=== PATIENT | female | born 1970 | race Caucasian/White ===

== ENCOUNTER 2017-07-04 19:24 | Emergency (ER) | payer BC ==
[~2017-07-04] VITALS: Ht 172.7 cm; Wt 72.6 kg
[2017-07-04 20:56] LABS: BILIRUBIN,URINE NEGATIVE (NEG); GLUCOSE,URINE 500 mg/dL (NEG); NITRITE,URINE NEGATIVE (NEG); PROTEIN,URINE NEGATIVE (NEG-TRACE); UROBILINOGEN,URINE 0.2 mg/dL (0.2 mg/dL)
[2017-07-04] MEDS ORDERED: ONDANSETRON PF 4 MG/2 ML VIAL. IV ONE (21:00)
[2017-07-04 21:14] LABS: BASO # 0.1 x10^3/uL (0.0-0.2); BASO % 1 % (0-3); EOS % 1 % (0-3); HEMATOCRIT 38.8 % (36.0-47.0); LYMPH % 19 % (24-48); MEAN CORPUSCULAR HEMOGLOBIN 34 pg (25-35); MEAN CORPUSCULAR HGB CONC 34 g/dL (31-37); MEAN CORPUSCULAR VOLUME 100 fL (79-100); MONO % 4 % (0-9); NEUT % 75 % (31-73); PLATELET COUNT 222 x10^3/uL (140-400); RED BLOOD COUNT 3.88 x10^6/uL (3.50-5.40); RED CELL DISTRIBUTION WIDTH 15.9 % (11.5-14.5); WHITE BLOOD COUNT 10.6 x10^3/uL (4.0-11.0)
[2017-07-04] MEDS ORDERED: IOHEXOL 300 MG/ML 75 ML VIAL IV ONE (21:15)
[2017-07-04] MEDS ORDERED: CONTRAST GIVEN MC PRN (21:15)
[2017-07-04] MEDS: MORPHINE SULFATE 4 MG/ML DISP.SYRIN. IV/SQ PRN ×2 (21:16→21:55)
[2017-07-04 21:19] LABS: BACTERIA,URINE 0 /HPF (0-FEW); RBC,URINE OCC /HPF (0-2); SQUAMOUS EPITHELIAL CELL,UR OCC /LPF
[2017-07-04 21:24] LABS: CALCIUM 8.5 mg/dL (8.5-10.1); CREATININE 0.7 mg/dL (0.6-1.0); GFR 90.1; POTASSIUM 4.1 mmol/L (3.5-5.1)
--- NOTE | 2017-07-04 22:06 | RAD ---
Indication: Left anterior rib pain, status post trauma. Axial imaging through the chest was performed after the administration of intravenous contrast. One or more of the following individualized dose reduction techniques were utilized for this examination: 1. Automated exposure control 2. Adjustment of the mA and/or kV according to patient size 3. Use of iterative reconstruction technique No definite mediastinal hematoma or great vessel injury is identified. No pericardial or pleural effusion is detected. No parenchymal contusion or pneumothorax is identified. The bony structures are intact. No definite rib fracture is identified. The upper abdomen is unremarkable. IMPRESSION: Unremarkable CT of the chest. Electronically signed by: Bran Garcia MD (07/04/2017 10:03 PM) [facility]
[2017-07-04] MEDS ORDERED: LIDOCAINE (700MG/PATCH) PATCH. TD ONE (22:30)
[2017-07-04] MEDS ORDERED: NAPROXEN 500 MG TABLET PO ONE (22:30)
[2017-07-04] MEDS ORDERED: CYCLOBENZAPRINE 10 MG TABLET. PO ONE (22:30)
--- NOTE | 2017-07-04 22:45 | ED.ADGEN ---
Past Medical History Past Medical History: Diabetes-Type I Past Surgical History: Additional Past Surgical Histo: CARPEL TUNNEL Additional Information: 0.5 PPD Alcohol Use: Occasionally Additional Information: DAILY - LIGHT DRINKER Drug Use: Marijuana Adult General Chief Complaint Chief Complaint: RIB PAIN HPI HPI Patient is a 47 year old woman, 3 type 1 diabetes, uses an insulin pump, who presents to the emergency department with a complaint of left-sided pain. Patient states that she was at a water park, and she was on an enclosed waterslide, on a mat which required her to lay on her stomach, when she went over a bump in the water ride, and "caught air". She states that she landed very hard on her left side, isn't experiencing left-sided pain from her lower rib area up into her upper chest since that time. States she has pain with any motion and with inspiration and expiration. Denies any preceding symptoms, denies any abdominal pain, any nausea or vomiting, any weakness, numbness, tingling, headache, or other injuries. Has not taken any medication prior to coming to the ED. Review of Systems Review of Systems Constitutional: Denies fever or chills. [] Eyes: Denies change in visual acuity. [] HENT: Denies nasal congestion or sore throat. [] Respiratory: Denies cough or shortness of breath. [] Cardiovascular: Left-sided chest pain GI: Denies abdominal pain, nausea, vomiting, bloody stools or diarrhea. [] : Denies dysuria. [] Musculoskeletal: Denies back pain or joint pain. [] Integument: Denies rash. [] Neurologic: Denies headache, focal weakness or sensory changes. [] Endocrine: Denies polyuria or polydipsia. [] Lymphatic: Denies swollen glands. [] Psychiatric: Denies depression or anxiety. [] Current Medications Current Medications Current Medications Medications (Trade) Dose Ordered Sig/Jonn Start Time Stop Time Status Last Admin Dose Admin Cyclobenzaprine HCl (Flexeril) 10 mg 1X ONCE 07/04/17 22:30 07/04/17 22:31 DC 07/04/17 22:29 10 MG Info (Do NOT chart on this entry -- for MONITORING) 1 each PRN DAILY PRN 07/04/17 21:15 07/06/17 21:14 Iohexol (Omnipaque 300 Mg/ml) 75 ml 1X ONCE 07/04/17 21:15 07/04/17 21:16 DC 07/04/17 21:36 75 ML Lidocaine (Lidoderm) 1 patch 1X ONCE 07/04/17 22:30 07/04/17 22:31 DC 07/04/17 22:29 1 PATCH Morphine Sulfate 4 mg PRN Q15MIN PRN 07/04/17 20:45 07/05/17 20:44 07/04/17 21:55 4 MG Naproxen (Naprosyn) 500 mg 1X ONCE 07/04/17 22:30 07/04/17 22:31 DC 07/04/17 22:28 500 MG Ondansetron HCl (Zofran) 4 mg 1X ONCE 07/04/17 21:00 07/04/17 21:01 DC 07/04/17 21:13 4 MG Allergies Allergies Allergies Coded Allergies Type Severity Reaction Last Updated Verified meperidine Allergy Intermediate 07/04/17 Yes Physical Exam Physical Exam Constitutional: Well developed, well nourished, appears uncomfortable, non- toxic appearance. [] HENT: Normocephalic, atraumatic, bilateral external ears normal, oropharynx moist, no oral exudates, nose normal. [] Eyes: PERRLA, EOMI, conjunctiva normal, no discharge. [] Neck: Normal range of motion, no tenderness, supple, no stridor. [] Cardiovascular:Heart rate regular rhythm, no murmur, S1, S2, rubs or gallops. [] Lungs & Thorax: Bilateral breath sounds clear to auscultation , no wheezing, rhonchi, rales. Patient with extreme tenderness palpation to the entire left side of her chest, no deformities noted no crepitus, no bony point tenderness, no trauma identified. Patient's tenderness palpation does extend into the left upper quadrant. [] Abdomen: Bowel sounds normal, soft, tenderness palpation in the left upper quadrant, no rebound, rigidity, mild voluntary guarding no masses, no pulsatile masses. [] Skin: Warm, dry, no erythema, no rash. [] Back: No tenderness, no CVA tenderness. [] Extremities: No tenderness, no cyanosis, no clubbing, ROM intact, no edema. [] Neurologic: Alert and oriented X 3, normal motor function, normal sensory function, no focal deficits noted. [] Psychologic: Affect normal, judgement normal, mood normal. [] Current Patient Data Vital Signs Vital Signs Date Time Temp Pulse Resp B/P (MAP) Pulse Ox O2 Delivery O2 Flow Rate FiO2 07/04/17 21:55 20 98 07/04/17 21:16 Room Air 07/04/17 20:05 97.6 81 134/70 (91) 97.6 Lab Values Laboratory Tests Test 07/04/17 20:05 07/04/17 21:05 Urine Collection Type Unknown Urine Color Yellow Urine Clarity Clear Urine pH 7.0 Urine Specific Morehouse 1.010 Urine Protein Negative mg/dL (NEG-TRACE) Urine Glucose (UA) 500 mg/dL (NEG) Urine Ketones (Stick) Negative mg/dL (NEG) Urine Blood Negative (NEG) Urine Nitrite Negative (NEG) Urine Bilirubin Negative (NEG) Urine Urobilinogen Dipstick 0.2 mg/dL (0.2 mg/dL) Urine Leukocyte Esterase Negative (NEG) Urine RBC Occ /HPF (0-2) Urine WBC 1-4 /HPF (0-4) Urine Squamous Epithelial Cells Occ /LPF Urine Bacteria 0 /HPF (0-FEW) White Blood Count 10.6 x10^3/uL (4.0-11.0) Red Blood Count 3.88 x10^6/uL (3.50-5.40) Hemoglobin 13.0 g/dL (12.0-15.5) Hematocrit 38.8 % (36.0-47.0) Mean Corpuscular Volume 100 fL (79-100) Mean Corpuscular Hemoglobin 34 pg (25-35) Mean Corpuscular Hemoglobin Concent 34 g/dL (31-37) Red Cell Distribution Width 15.9 % (11.5-14.5) H Platelet Count 222 x10^3/uL (140-400) Neutrophils (%) (Auto) 75 % (31-73) H Lymphocytes (%) (Auto) 19 % (24-48) L Monocytes (%) (Auto) 4 % (0-9) Eosinophils (%) (Auto) 1 % (0-3) Basophils (%) (Auto) 1 % (0-3) Neutrophils # (Auto) 8.0 x10^3uL (1.8-7.7) H Lymphocytes # (Auto) 2.0 x10^3/uL (1.0-4.8) Monocytes # (Auto) 0.5 x10^3/uL (0.0-1.1) Eosinophils # (Auto) 0.1 x10^3/uL (0.0-0.7) Basophils # (Auto) 0.1 x10^3/uL (0.0-0.2) Sodium Level 138 mmol/L (136-145) Potassium Level 4.1 mmol/L (3.5-5.1) Chloride Level 100 mmol/L (98-107) Carbon Dioxide Level 34 mmol/L (21-32) H Anion Gap 4 (6-14) L Blood Urea Nitrogen 5 mg/dL (7-20) L Creatinine 0.7 mg/dL (0.6-1.0) Estimated GFR (Cockcroft-Gault) 90.1 Glucose Level 271 mg/dL (70-99) H Calcium Level 8.5 mg/dL (8.5-10.1) Laboratory Tests 07/04/17 21:05 Laboratory Tests 07/04/17 21:05 EKG EKG Not indicated. [] Radiology/Procedures Radiology/Procedures [][facility] [address] [place], [place] [id number] IMAGING REPORT Signed PATIENT: TEVIN STOREY ACCOUNT: [id number] : 1970 LOCATION: ER AGE: 47 SEX: F EXAM STATUS: REG ER ORD. PHYSICIAN: SANNA POWER DO REASON: L sided pain s/p trauma PROCEDURE: CT CHEST ABDOMEN W/CONTRAST ADDENDUM Addendum: CT ABDOMEN: Axial imaging through the abdomen was performed after the administration of intravenous contrast. The liver and gallbladder are unremarkable. The spleen is unremarkable. The pancreas is unremarkable. No adrenal mass is seen. The kidneys are unremarkable. There is no ascites. The aorta is nonaneurysmal. The small and large bowel loops are normal caliber. The bony structures appear nonacute. IMPRESSION: Unremarkable CT of the abdomen. Electronically signed by: Bran Garcia MD (07/04/2017 10:24 PM) [facility] DICTATED AND SIGNED BY: BRAN GARCIA MD DATE: 07/04/172221 CC: SANNA POWER DO; NO PCP ~ Indication: Left anterior rib pain, status post trauma. Axial imaging through the chest was performed after the administration of intravenous contrast. One or more of the following individualized dose reduction techniques were utilized for this examination: 1. Automated exposure control 2. Adjustment of the mA and/or kV according to patient size 3. Use of iterative reconstruction technique No definite mediastinal hematoma or great vessel injury is identified. No pericardial or pleural effusion is detected. No parenchymal contusion or pneumothorax is identified. The bony structures are intact. No definite rib fracture is identified. The upper abdomen is unremarkable. IMPRESSION: Unremarkable CT of the chest. Electronically signed by: Bran Garcia MD (07/04/2017 10:03 PM) [facility] DICTATED and SIGNED BY: BRAN GARCIA MD DATE: 07/04/172199 CC: SANNA POWER DO; NO PCP ~ Impressions: X-ray: One view: Normal cardiopulmonary silhouette, no focal traits, no effusions, no pneumothorax, no soft tissue or bony abnormalities identified. As interpreted by me. Course & Med Decision Making Course & Med Decision Making Pertinent Labs and Imaging studies reviewed. (See chart for details) Patient with limited examination initially secondary to pain. Oxygen saturation is 96-99% room air, respiratory rate 18-20, heart rate is in the 80s. Initial one view chest X-ray obtained to evaluate, which was negative for fracture or pneumo. CT of the chest and abdomen obtained, secondary to patient's severe discomfort, and report of trauma with tenderness along the entire left side of her chest extending to the left upper abdomen. Imaging did not reveal any concerning findings. Patient received fentanyl in the ED, a Lidoderm patch was applied, and received oral medications along with instructions on incentive spirometry. Patient discharged home in stable condition, with family, with medications, plan, precautions as stated. Dragon Disclaimer Dragon Disclaimer This electronic medical record was generated, in whole or in part, using a voice recognition dictation system. Departure Impression: Primary Impression: Contusion of rib on left side Disposition: 01 HOME, SELF-CARE Condition: IMPROVED Scripts Lidocaine (Lidocaine) 1 Each Adh..patch 1 EACH TP PRN Q12HRS Y for PAIN, #5 PATCH Prov: SANNA POWER DO 07/04/17 Naproxen (NAPROXEN) 250 Mg Tablet 250 MG PO PRN BID Y for PAIN, #10 Prov: SANNA POWER DO 07/04/17 Cyclobenzaprine Hcl (CYCLOBENZAPRINE HCL) 10 Mg Tablet 10 MG PO TID Y for MUSCLE PAIN, #15 TAB Prov: SANNA POWER DO 07/04/17 SANNA POWER DO Jul 04, 2017 22:45
[2017-07-04 23:00] VITALS: BP 130/71
[2017-07-04] MEDS ORDERED: NAPR250T2 PO (23:07)
[2017-07-04] MEDS ORDERED: CYCL10TA2 PO (23:07)
[2017-07-04] MEDS ORDERED: LIDO700A39 TP (23:07)
--- NOTE | 2017-07-05 10:08 | RAD ---
AP portable chest radiograph 07/04/2017 Clinical History: Left-sided chest pain since earlier today. An AP portable erect digital radiograph of the chest was obtained. No previous studies are available for comparison. The cardiac silhouette is normal in size. The thoracic aorta is mildly tortuous. No acute pulmonary infiltrate is seen. No pleural effusion or pneumothorax is noted. Mild degenerative changes are seen involving the thoracic spine and both shoulders. Impression: No acute abnormality is seen.
== END 2017-07-04 23:38 | disposition home or self-care (01) ==
LOC: ER 19:24
DX: S20.212A Contusion of left front wall of thorax, initial encounter (principal); E10.9 Type 1 diabetes mellitus without complications; F17.200 Nicotine dependence, unspecified, uncomplicated; Z79.4 Long term (current) use of insulin; Z96.41 Presence of insulin pump (external) (internal); Z88.8 Allergy status to other drugs, medicaments and biological substances; W22.8XXA Striking against or struck by other objects, initial encounter; Y93.89 Activity, other specified; Y92.89 Other specified places as the place of occurrence of the external cause; Y99.8 Other external cause status
CPT/HCPCS: 36415; 71010; 71260; 74160; 80048; 81001; 85025; 96374; 96375; 96376; 99285; J2270; J2405; Q9967